=== PATIENT | female | born 1970 | race Caucasian/White ===

== ENCOUNTER 2025-01-17 09:31 | Emergency (ER) | payer MEDICAID ==
[~2025-01-17] VITALS: Ht 167.6 cm; Wt 80.0 kg
[2025-01-17 09:42] VITALS: O2SAT 99
[2025-01-17] MEDS: KETOROLAC 30MG/ML VIAL IM ONE (12:15)
[2025-01-17] MEDS: CYCLOBENZAPRINE 10MG TABLET PO ONE (12:15)
[2025-01-17] MEDS: LIDOCAINE 5% PATCH TOP STA (12:16)
[2025-01-17] MEDS ORDERED: CYCL10TA21 MT (13:37)
[2025-01-17] MEDS ORDERED: LIDO700A30 TP (13:37)
[2025-01-17] MEDS ORDERED: IBUP-2029 MT (13:37)
[2025-01-17 13:56] VITALS: BP 147/83; PULSE 57; RESP 16; TEMP 37.1; O2SAT 97
== END 2025-01-17 14:00 | disposition home or self-care (01) ==
LOC: ER 09:31
DX: M54.50 Low back pain, unspecified (principal); M54.2 Cervicalgia
CPT/HCPCS: 81025; 72100; 96372; 99283; J1885; Z7610; 99285